=== PATIENT | female | born 1980 | race Caucasian/White ===

== ENCOUNTER → 2023-11-25 | Outpatient (CLI) | payer OTHER ==
[~2023-11-25] MED LIST: PRENATAL VITAMI1 TA5 PO
== END ==
LOC: COL.RAD 12:37
DX: R42 Dizziness and giddiness (principal); R68.84 Jaw pain

== ENCOUNTER 2023-12-11 14:54 | Outpatient (RCR) | payer OTHER | END 2023-12-22 | disposition home or self-care (01) | LOC: WSPT | DX: R42 Dizziness and giddiness (principal) ==